=== PATIENT | female | born 2000 | race Caucasian/White ===

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

== ENCOUNTER 2024-07-12 12:01 | Inpatient (IN) ==
[2024-07-13] MEDS ORDERED: LIDOCAINE 1% LOCAL 20 ML VIAL INFIL PRN (13:39)
[2024-07-13] MEDS ORDERED: OXYTOCIN 30 UNITS/NSS 30 UNITS/500 ML BAG IV PRN ×2 (13:47→20:44)
--- NOTE | 2024-07-13 13:53 | History & Physical Report ---
Date of Service July 13, 2024 Assessment & Plan (1) Post-dates : Plan: [place]dock for ripening with Oxytocin Admission and Anticipated Discharge Date Admission Date: July 13, 2024 History of Present Illness Chief Complaint: 24 F P2012 at 41 weeks presents for IOL for postdates . GBS is negative. Primary Care Provider: Edison Borjas MD see above Allergies Allergy/AdvReac Type Severity Reaction Status Date / Time amoxicillin Allergy Unknown HIVES Verified 06/08/24 02:02 prednisone Allergy Unknown HIVES Verified 06/08/24 02:02 Home Medications Medication Instructions Recorded Confirmed Type cyanocobalamin (vitamin B-12) 1,000 mcg PO DAILY 06/08/24 07/13/24 History 1,000 mcg tablet (Vitamin B-12) vits no.124-ferrous fum 1 tab PO DAILY 06/08/24 07/13/24 History 27 mg iron-folic acid 800 mcg tablet ( Vitamin) docusate sodium 100 mg capsule 100 mg PO DAILY 07/13/24 07/13/24 History (Colace) ferrous sulfate 325 mg (65 mg 325 mg PO DAILY 07/13/24 07/13/24 History iron) tablet (iron) Patient History Medical History 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 Vitamin B12 deficiency on supplement Anemia had iron infusion and iron supplement with current History of vaginitis Dx while took antibiotics-resolved History of vaginal delivery in 2016 with a first degree laceration, 2019 History of spontaneous no D & C required Family History Father Diabetes Social History Smoking Status: Never smoker Second Hand Exposure: No; Do You Dip or Chew Tobacco: No; Hx Alcohol Use: No Hx Substance Use: No Preferred Language: Croatian Communication Ability: Effective Curing Oven Tender Required: No Beliefs That Will Affect Care: None marital status: Single Current Living Situation: Significant Other current occupational status: employed Feels Safe at Home: Yes Safety Concerns: Feels Safe At This Time Assistive Devices: None 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 Review of Systems All systems reviewed & are unremarkable except as noted in HPI & below Physical Exam Constitutional: WD/WN, vitals as above Eyes: PERRL, conjunctivae normal, anicteric sclerae Respiratory: normal respiratory effort, lungs clear to auscultation Cardiovascular: Rate/Rhythm: regular rate and regular rhythm Gastrointestinal (Abdomen): Inspection/Auscultation: abdomen normal to inspection Musculoskeletal: Extremities: extremities normal to inspection Skin: no rashes, warm and dry Neurologic: patellar DTR's 2+ bilat, sensation intact Psychiatric: A+Ox3, euthymic affect Genitourinary: no vaginal lesions, no adnexal mass OB Exam Abdomen: + fundal height, + vertex and + estimated weight (7.5 lbs.) Manual OB Exam: + cervical dilation 1 cm, + cervical effacement 50% and + station high Murdock bulb placed transvaginally into cervix with 40 ml. Saline Results & Data Vital Signs (Past 12 Hours) Vital Signs Temp Pulse Resp BP Pulse Ox 07/13/24 13:46 98 07/13/24 13:46 111 H 07/13/24 13:41 98 07/13/24 13:41 118 H 07/13/24 13:36 97 07/13/24 13:36 124 H 07/13/24 13:31 98 07/13/24 13:31 131 H 07/13/24 13:26 97 07/13/24 13:26 119 H 07/13/24 13:21 98 07/13/24 13:21 136 H 07/13/24 12:57 36.8 C 129 H 20 119/74 07/13/24 12:53 129 H 119/74 07/13/24 12:52 20 07/13/24 12:52 36.8 C 20 Code Status & VTE Plan VTE Prophylaxis Plan VTE Prophylaxis will be ordered: No Monitoring External Monitor Cat 1 (1) Post-dates Post-term type: 40-42 weeks gestation Qualified Code(s): O48.0 - Post-term
[2024-07-13 14:40] LABS: Hematocrit (blood only) 35.7 % (37.0-47.0); Hemoglobin 11.6 g/dl (12.0-16.0); Mean Corpuscular Hemoglobin 27.8 pg (25.0-34.0); Mean Corpuscular Hgb Conc 32.5 g/dL (32.0-36.0); Mean Corpuscular Volume 85.4 fL (80.0-100.0); Mean Platelet Volume 10.4 fL (9.4-12.4); Platelet Count 195 K/uL (130-400); RDW Coefficient of Variation 15.5 % (11.5-14.5); RDW Standard Deviation 48.4 fL (36.4-46.3); Red Blood Count 4.18 M/uL (4.20-5.40); White Blood Count 11.77 K/ul (4.8-10.8)
[2024-07-13] MEDS: OXYTOCIN 30 UNITS/NSS 30 UNITS/500 ML BAG IV PRN (14:40)
[2024-07-13] MEDS: SODIUM CHLORIDE 0.9% 1,000 ML IV SCH (15:00)
--- NOTE | 2024-07-13 18:43 | Labor Progress Brief Note ---
Date of Service July 13, 2024 Assessment & Plan Admission and Anticipated Discharge Date Admission Date: July 13, 2024 Physical Exam Genitourinary: Manual OB Exam: + cervical dilation 4 cm, + cervical effacement 60%, + station -2 and + amniotic fluid meconium OB Exam Monitor Tracing: + external FHT monitor used, + external uterine monitor used, + category I and + normal FHT variability AROM with Amni-hook light meconium fluid Results & Data Vital Signs (Past 12 Hours) Vital Signs Temp Pulse Resp BP Pulse Ox 07/13/24 18:04 91 H 07/13/24 18:04 120/78 07/13/24 17:30 20 07/13/24 17:30 36.7 C 20 07/13/24 17:26 97 H 07/13/24 17:26 119/79 07/13/24 16:27 96 H 07/13/24 16:27 131/81 07/13/24 15:33 100 H 07/13/24 15:33 117/74 07/13/24 14:43 116 H 07/13/24 14:43 127/83 07/13/24 14:21 98 07/13/24 14:21 105 H 07/13/24 14:16 98 07/13/24 14:16 113 H 07/13/24 14:11 97 07/13/24 14:11 109 H 07/13/24 14:06 96 07/13/24 14:06 105 H 07/13/24 14:01 97 07/13/24 14:01 122 H 07/13/24 13:56 96 07/13/24 13:56 113 H 07/13/24 13:51 98 07/13/24 13:51 103 H 07/13/24 13:46 98 07/13/24 13:46 111 H 07/13/24 13:41 98 07/13/24 13:41 118 H 07/13/24 13:36 97 07/13/24 13:36 124 H 07/13/24 13:31 98 07/13/24 13:31 131 H 07/13/24 13:26 97 07/13/24 13:26 119 H 07/13/24 13:21 98 07/13/24 13:21 136 H 07/13/24 12:57 36.8 C 129 H 20 119/74 07/13/24 12:53 129 H 119/74 07/13/24 12:52 20 07/13/24 12:52 36.8 C 20
[2024-07-13] MEDS ORDERED: BENZOCAINE 20% SPRY 85 APPLN/85 GM CAN EXT PRN (20:44)
[2024-07-13] MEDS ORDERED: bisacodyL 10 MG SUPP PR PRN (20:44)
[2024-07-13] MEDS ORDERED: HYDROCORTISONE ACETATE 25 MG SUPP PR PRN (20:44)
--- NOTE | 2024-07-13 20:47 | Delivery Summary ---
Vaginal Delivery Summary Date of Service July 13, 2024 Vaginal Delivery Summary live female PEREZ over intact perineum with delayed cord clamping and Apgars 8/8 weight pending. Cord blood obtained followed by spontaneous delivery of intact placenta. No tears. QBL 150 ml. Final sponge and instrument count are correct. Mom and baby stable.
[2024-07-13] MEDS: ACETAMINOPHEN 325 MG TAB PO PRN (20:56)
[2024-07-13] MEDS: DOCUSATE SODIUM 100 MG CAP PO SCH (20:57)
[2024-07-13] MEDS: IBUPROFEN 600 MG TAB PO PRN (20:57)
[2024-07-13] MEDS: DIPHTHER/TETAN/PERTUS Vaccine (Tdap, Adol/Adult) 0.5mL IM ONE (21:52)
--- NOTE | 2024-07-14 07:31 | Obstetrical Progress Note ---
Date of Service July 14, 2024 Subjective Ambulation: ambulating normally Voiding: no voiding problems Passing Gas:: Yes Diet Tolerance:: regular diet Feeding Type:: breast feeding Current Pain Level(1-10): 0 doing well. plans for d/c tomorrow. Physical Exam Constitutional WD/WN, vitals as above Gastrointestinal (Abdomen) Inspection/Auscultation: abdomen normal to inspection abdomen soft and non-tender. fundus firm below U. Musculoskeletal Extremities: extremities normal to inspection Skin no rashes, warm and dry Neurologic patellar DTR's 2+ bilat, sensation intact Psychiatric A+Ox3, euthymic affect Results & Data Vital Signs (Past 12 Hours) Vital Signs Temp Pulse Pulse Pulse Resp BP BP 07/14/24 07:21 36.5 C 79 16 107/76 07/14/24 02:39 36.6 C 75 18 101/58 L 07/13/24 22:42 96 H 07/13/24 22:42 112/61 07/13/24 22:37 101 H 07/13/24 22:37 123/65 07/13/24 22:35 18 07/13/24 22:22 104 H 07/13/24 22:22 99/59 L 07/13/24 22:07 96 H 07/13/24 22:07 102/59 L 07/13/24 22:05 18 07/13/24 21:52 89 07/13/24 21:52 106/66 07/13/24 21:37 95 H 07/13/24 21:37 108/64 07/13/24 21:35 18 07/13/24 21:22 88 07/13/24 21:22 102/64 07/13/24 21:20 18 07/13/24 21:07 93 H 07/13/24 21:07 99/59 L 07/13/24 21:05 16 07/13/24 20:52 97 H 07/13/24 20:52 114/59 L 07/13/24 20:50 16 07/13/24 20:37 110 H 07/13/24 20:37 108/57 L 07/13/24 20:35 18 07/13/24 20:06 107 H 07/13/24 20:06 114/70 Pulse Ox O2 Del Method 07/14/24 07:21 98 Room Air 07/14/24 02:39 96 Room Air 07/13/24 22:42 07/13/24 22:42 07/13/24 22:37 07/13/24 22:37 07/13/24 22:35 07/13/24 22:22 07/13/24 22:22 07/13/24 22:07 07/13/24 22:07 07/13/24 22:05 07/13/24 21:52 07/13/24 21:52 07/13/24 21:37 07/13/24 21:37 07/13/24 21:35 07/13/24 21:22 07/13/24 21:22 07/13/24 21:20 07/13/24 21:07 07/13/24 21:07 07/13/24 21:05 07/13/24 20:52 07/13/24 20:52 07/13/24 20:50 07/13/24 20:37 07/13/24 20:37 07/13/24 20:35 07/13/24 20:06 07/13/24 20:06 Laboratory Results 07/13/24 14:16 WBC 11.77 H RBC 4.18 L Hgb 11.6 L Hct 35.7 L MCV 85.4 MCH 27.8 MCHC 32.5 RDW Std Deviation 48.4 H RDW Coeff of Elieser 15.5 H Plt Count 195 MPV 10.4 Treponema pallidum Ab Negative
[2024-07-14 07:53] LABS: Hematocrit (blood only) 36.3 % (37.0-47.0); Hemoglobin 11.6 g/dl (12.0-16.0); Mean Corpuscular Hemoglobin 27.4 pg (25.0-34.0); Mean Corpuscular Volume 85.8 fL (80.0-100.0); Mean Platelet Volume 10.5 fL (9.4-12.4); Platelet Count 186 K/uL (130-400); RDW Coefficient of Variation 15.7 % (11.5-14.5); RDW Standard Deviation 49.1 fL (36.4-46.3); Red Blood Count 4.23 M/uL (4.20-5.40); White Blood Count 11.77 K/ul (4.8-10.8)
[2024-07-14] MEDS: PRENATAL VITAMIN 1 TAB PO SCH (08:26)
[2024-07-14] MEDS: FERROUS SULFATE 325 MG TAB PO SCH (08:26)
[2024-07-14] MEDS: CYANOCOBALAMIN (B-12) 500 MCG TABLET PO SCH (08:26)
[2024-07-14] MEDS ORDERED: NON-FORMULARY MEDICATION (Ferrous Sulfate [Iron] 325 mg (65 mg iron) Tablet) PO SCH (09:00)
[2024-07-14] MEDS ORDERED: DOCUSATE SODIUM 100 MG CAP PO SCH (09:00)
[2024-07-14] MEDS ORDERED: PRENATAL VITAMIN 1 TAB PO SCH (09:00)
[2024-07-14] MEDS: bisacodyL 5 MG TABEC PO SCH (19:36)
[2024-07-14 21:40] VITALS: O2SAT 98
[2024-07-15 01:01] VITALS: RESP 18
[2024-07-15 06:44] LABS: Hematocrit (blood only) 33.4 % (37.0-47.0); Hemoglobin 10.8 g/dl (12.0-16.0)
[2024-07-15 08:05] VITALS: BP 104/74; TEMP 97.5
--- NOTE | 2024-07-15 08:06 | Obstetrical Progress Note ---
Date of Service July 15, 2024 Assessment & Plan Admission and Anticipated Discharge Date Admission Date: July 13, 2024 Subjective Patient is seen and examined. She feels well, no complaints other than hemorrhoids Pain but no rectal bleeding She has not had BM, flatus+ Ambulating without dizziness Voiding without difficulty Tolerating regular diet with out N&V Bleeding is minimal No fever/ chills/ CP/ SOB/ N&V/ Leg pain Breast feeding without problems Vital Signs Temp Pulse Resp BP Pulse Ox O2 Del Method 07/15/24 00:30 36.6 C 86 18 98/56 L 98 Room Air Vital Signs Temp Pulse Resp BP Pulse Ox O2 Del Method 07/15/24 00:30 36.6 C 86 18 98/56 L 98 Room Air 07/14/24 19:15 36.5 C 89 16 100/67 98 Room Air 07/14/24 14:30 36.6 C 88 16 101/64 97 Room Air 07/14/24 11:09 36.5 C 83 16 107/62 97 Room Air Lab Results 07/13/24 07/14/24 07/15/24 Range/Units 14:16 07:15 06:22 WBC 11.77 H 11.77 H (4.8-10.8) K/ul RBC 4.18 L 4.23 (4.20-5.40) M/uL Hgb 11.6 L 11.6 L 10.8 L (12.0-16.0) g/dl Hct 35.7 L 36.3 L 33.4 L (37.0-47.0) % MCV 85.4 85.8 (80.0-100.0) fL MCH 27.8 27.4 (25.0-34.0) pg MCHC 32.5 32.0 (32.0-36.0) g/dL RDW Std Deviation 48.4 H 49.1 H (36.4-46.3) fL RDW Coeff of Elieser 15.5 H 15.7 H (11.5-14.5) % Plt Count 195 186 (130-400) K/uL MPV 10.4 10.5 (9.4-12.4) fL Treponema pallidum Ab Negative (Negative) PE: General: Alert, orientedx3, NAD Abd: soft, NT, fundus firm, below Umbilicus Perineum intact, Lochia rubra minimal, Small ext hemorrhoids, no edema, no color change Ext; NT, no edema AP: 24 yo s/p , ppd# 2 VSS Afebrile doing well Continue routine care PO MOM, Anusol rectal cream All questions were answered D/C home , f/u in office Results & Data Vital Signs (Past 12 Hours) Vital Signs Temp Pulse Resp BP Pulse Ox O2 Del Method 07/15/24 00:30 36.6 C 86 18 98/56 L 98 Room Air
[2024-07-15] MEDS: MAGNESIUM HYDROXIDE SUSP 30 ML UDC PO ONE (08:18)
[2024-07-15] MEDS: HYDROCORTISONE HC 2.5% CRM 30GM TUBE EXT ONE (08:27)
[2024-07-15 11:09] VITALS: PULSE 75
== END 2024-07-15 12:25 | disposition home or self-care (01) | DRG 807 ==
LOC: 4S1 07-13 12:41 → 4E1 07-14 00:08